=== PATIENT | male | born 1970 | race Two or more races ===

== ENCOUNTER 2024-01-16 19:42 | Emergency (ER) | payer SELFPAY ==
[2024-01-16] VITALS (8 sets, daily range): BP systolic 208–231; BP diastolic 110–130; BMI 25.1
--- NOTE | 2024-01-16 20:48 | ED.GENMED ---
History of Present Illness
General
Chief Complaint: Blood Pressure Problem
Source: patient
Time Seen by Provider: 01/16/24 20:18
History of Present Illness
History of Present Illness:
53-year-old male [facility] Patient was being brought to the [facility] after a stay at [facility]. During the intake process his blood pressure was noted to be high from the
staff at the [facility] to refer him to the emergency room. Patient has known hypertension. He was found to be hypertensive when first incarcerated, [facility] and he was started on antihypertensive medication. He did take his blood pressure medicine
this morning. He takes 20 mg of lisinopril and 25 mg of hydrochlorothiazide. Patient also was prescribed Paxil at night. His blood pressure was improving but was still elevated on measurements there. Patient denies any stimulant use.
Specifically the patient denies any headache, weakness, numbness, chest pain, shortness of breath, abdominal pain or back pain. He has no visual changes. Patient does endorse feeling very anxious about moving from 1 person to another.
Phy Exam
Physical Exam
Physical Exam:
General: Awake, Alert, Oriented X3. No acute distress.
Vitals: Hypertensive
Head: Atraumatic
Eyes: Pupils equal, EOMI
Throat: Airway intact, no exudates
Neck: Trachea midline
Lungs: Clear and equal b/l
Heart: Regular rate, no murmurs
Abd: Soft, Nontender, No pulsatile mass
Neuro: Cranial nerves intact, muscle strength equal bilaterally, cerebellar exam normal
Skin: Warm, dry, no rash
Extremities: pulses equal b/l, no edema
Course
Orders/Labs/Results
Orders:
Orders
01/16/24 20:42
Electrocardiogram (*1) Urgent
Reason for Study: Hypertension, Benign
EKG- Treatment ONCE
01/16/24 20:46
Lisinopril [Zestril] 20 mg PO NOW STA
Lorazepam [Ativan] 1 mg PO NOW STA
01/16/24 20:48
Basic Metabolic Panel Urgent
Complete Blood Count/With Diff Urgent
01/16/24 21:09
Paroxetine [Paxil] 20 mg PO NOW STA
01/16/24 23:04
HydrALAZINE [Apresoline] 10 mg PO NOW STA
Abnormal Lab Results
01/16/24
20:48
RBC 4.48 L 10^6/uL
(4.70-6.10)
Hct 36.7 L %
(39.0-52.0)
MCHC 37.9 H g/dL
(33.0-37.0)
MPV 11.1 H fL
(7.4-10.4)
Absolute Monos (auto) 0.7 H 10^3/uL
(0.1-0.6)
Monocytes % 11.0 H %
(1.7-9.3)
Carbon Dioxide 21 L mmol/L
(22-30)
BUN 30 H mg/dl
(9-20)
01/16/24 20:48
01/16/24 20:48
Vital Signs
Initial and Last Documented VS:
Initial Vital Signs
Temp Pulse Resp BP Pulse Ox
98.1 F 70 18 211/117 100
01/16/24 19:45 01/16/24 19:45 01/16/24 19:45 01/16/24 19:45 01/16/24 19:45
Last Documented Vital Signs
Temp Pulse Resp BP Pulse Ox
98.1 F 70 18 183/97 99
01/16/24 19:45 01/17/24 00:55 01/17/24 00:55 01/17/24 00:55 01/17/24 00:55
MDM/Problems Addressed
Differential Diagnosis Includes:
Hypertensive emergency, poorly controlled hypertension
MDM/Problems Addressed:
Patient has no symptoms or physical exam findings of end-organ damage. Patient has no symptoms at all actually. Patient was given an extra dose of his lisinopril as well as a dose of lorazepam as I would expect him to be anxious about
incarceration. His pressure improved but significantly. He was given a dose of hydralazine. His blood pressure improved to the 180 systolic. I do not believe there is any further treatment necessary as again he has no evidence of endorgan
unction. Patient stable for [facility] where he needs to just follow a regular regiment of antihypertensive medication
*Pulse Oximetry
Patient hypoxic: no
*Critical Care Note
Total Time (30-74mins, 75-104mins- exclusive of procedures): Not Applicable
ED Attending Note
-
Portions of this chart may have been created with voice recognition software.� Occasional wrong word or��sound alike� substitutions may have occurred due to the inherent limitations of voice recognition software.
Discharge Plan
Departure
Patient Disposition: Home (Routine Discharge)
Date of Disposition: 01/17/24
Time of Disposition: 00:57
Patient with high blood pressure during this ER visit?: Yes
Condition: Good
Discharge Problem:
Uncontrolled hypertension
Instructions: High Blood Pressure (DC)
Prescriptions:
No Action
atorvastatin 20 mg Tablet
20 mg PO HS
lisinopril [Zestril] 20 mg Tablet
20 mg PO DAILY
paroxetine HCl [Paxil] 20 mg Tablet
20 mg PO HS
Debrox 6.5 % Drops
5 drp OTIC (EAR) Q12H
hydrochlorothiazide 25 mg Tablet
25 mg PO DAILY
Referrals:
NONE,* [Family Provider] -
Activity Restrictions/Additional Instructions:
Jesse has known, poorly controlled hypertension. There is no end-organ damage and, therefore, there is no reason to admit the patient and no reason to rapidly treat his hypertension. He is currently on a relatively low dose of lisinopril and I would
suggest increasing to 40mg a day. His blood pressure is not likely to normalize rapidly but expected to take a couple weeks.
Pt is medically cleared for incarceration.
Interventions
Interventions:
*Risk Screen - Suicide Last Done: 01/16/24 20:12
*General Assessment Last Done: 01/16/24 19:45
*Neglect/Abuse Screening Last Done: 01/16/24 20:12
ED- Fall Risk Assessment Last Done: 01/16/24 20:12
*ED COVID-19 Vaccine History Last Done: 01/16/24 20:12
*Nursing Disposition Last Done: 01/17/24 01:09
ED- Cardiac Assessment Last Done: 01/16/24 20:12
ED- Neurological Assessment Last Done: 01/16/24 20:12
ED- Pulmonary Assessment Last Done: 01/16/24 20:12
Discharge Date and Time
Discharge Date/Time: 01/17/24 01:10
Print Language: MALIAN
[2024-01-16] MEDS: ZESTRIL 20 MG PO (21:11)
[2024-01-16 21:13] LABS: Blood Urea Nitrogen 30 mg/dl (9-20); Carbon Dioxide 21 mmol/L (22-30); Chloride 106 mmol/L (98-107); Estimated Creatinine Clearance 68 ml/min; Glucose 81 mg/dl (70-99); Potassium 3.5 mmol/L (3.5-5.1); Sodium 140 mmol/L (135-145); eGFR > 60.00
[2024-01-16] MEDS: ATIVAN 1 MG PO (21:14)
[2024-01-16] MEDS: PAXIL 20 MG PO (21:24)
[2024-01-16 21:27] LABS: % Basophils 0.2 % (0-2); % Eosinophils 2.1 % (0-6); % Immature Granulocytes 0.5 % (0-0.5); % Lymphocytes 20.7 % (20.5-51.1); % Neutrophils 65.5 % (42.2-75.2); Absolute Eosinophils 0.1 10^3/uL (0-0.7); Absolute Lymphocytes 1.3 10^3/uL (1.2-3.4); Absolute Monocytes 0.7 10^3/uL (0.1-0.6); Hematocrit 36.7 % (39.0-52.0); Hemoglobin 13.9 g/dL (13.0-18.0); Mean Corp Hgb Conc. 37.9 g/dL (33.0-37.0); Mean Corpuscular Volume 81.9 fL (80.0-94.0); Mean Platelet Volume 11.1 fL (7.4-10.4); Nucleated Red Blood Cells % 0 % (-); Platelet Count 202 10^3/uL (130-400); Red Blood Cell Count 4.48 10^6/uL (4.70-6.10); White Blood Cell Count 6.1 10^3/uL (4.8-10.8)
[2024-01-16] MEDS: APRESOLINE 10 MG PO (23:13)
[2024-01-17] VITALS: BP 193/112
[2024-01-17 00:55] VITALS: BP 183/97
== END 2024-01-17 01:10 | disposition home or self-care (01) ==
LOC: EMR 19:42
PROVIDERS: EMERGENCY PHYSICIAN Emergency Medicine
DX: I10 Essential (primary) hypertension (principal)
CPT/HCPCS: 99284; 80048; 85025; 93005

== ENCOUNTER 2024-12-01 18:37 | Emergency (ER) | payer SELFPAY ==
[2024-12-01] VITALS (8 sets, daily range): BP systolic 176–222; BP diastolic 100–126
[2024-12-01 19:07] LABS: Hematocrit 41.2 % (39.0-52.0); Hemoglobin 14.9 g/dL (13.0-18.0); Mean Corp Hgb Conc. 36.2 g/dL (33.0-37.0); Mean Corpuscular Volume 80.6 fL (80.0-94.0); Nucleated Red Blood Cells % 0 % (-); Platelet Count 224 10^3/uL (130-400); Red Cell Dist. Width 12.8 % (11.5-14.5)
[2024-12-01] MEDS: TRANDATE 10 MG IV (19:21)
[2024-12-01] MEDS: ZESTRIL 20 MG PO (19:21)
[2024-12-01] MEDS: ORETIC 25 MG PO (19:22)
[2024-12-01 19:23] LABS: ALT (SGPT) 18 U/L (0-50); AST (SGOT) 21 U/L (17-59); Albumin 4.6 g/dl (3.5-5.0); Alkaline Phosphatase 112 U/L (38-126); Blood Urea Nitrogen 17 mg/dl (9-20); Calcium 10.0 mg/dl (8.4-10.2); Carbon Dioxide 19 mmol/L (22-30); Chloride 111 mmol/L (98-107); Estimated Creatinine Clearance 79 ml/min; Glucose 106 mg/dl (70-99); Potassium 3.8 mmol/L (3.5-5.1); Sodium 140 mmol/L (135-145); Total Protein 7.6 g/dl (6.3-8.2); eGFR > 60.00
[2024-12-01] MEDS: APRESOLINE 10 MG IV (20:41)
[2024-12-01] MEDS: NORVASC 10 MG PO (21:38)
--- NOTE | 2024-12-01 21:44 | ED.GENMED ---
History of Present Illness
General
Chief Complaint: Blood Pressure Problem
Source: patient
Time Seen by Provider: 12/01/24 18:46
History of Present Illness
History of Present Illness:
Note:
CHIEF COMPLAINT(S)
High blood pressure.
HISTORY OF PRESENT ILLNESS
The patient is a 54-year-old male with a known history of hypertension, presenting today after being picked up for incarceration. He reports not taking his prescribed antihypertensive medications for approximately two months due to circumstances
related to being on the run from parole and subsequently running out of his medications. The patient is on Lisinopril 20 mg and Hydrochlorothiazide, but cannot recall the exact name of the latter medication. He last had his blood pressure checked in
June while incarcerated at [facility], where it was monitored and noted to be elevated. The patient is currently experiencing stress and nervousness due to his legal situation and possible incarceration for six to nine months. He denies any other
medical problems, such as diabetes or hyperlipidemia, and states he has a family history of hypertension. His blood pressure was recorded as 220/120 mmHg during today�s encounter.
PAST MEDICAL AND SURIGICAL HISTORY
The patient has a history of hypertension.
SOCIAL DETERMINANTS AFFECTING HEALTH
The patient reports being unable to regularly take his medications due to being on the run related to parole. He anticipates potential incarceration, which could impact his medical follow-up and medication access.
MEDICATIONS
- Lisinopril 20 mg, taken irregularly due to running out approximately two months ago.
- Hydrochlorothiazide, dosage unknown.
REVIEW OF SYSTEMS
- Cardiovascular: History of high blood pressure.
- Neurological: Patient reports feeling stressed and nervous.
- Psychiatric: Feeling of stress attributed to legal and incarceration circumstances.
PHYSICAL EXAM
General: Alert, no acute distress.
Cardiovascular: Blood pressure 220/120 mmHg, regular rhythm without murmur.
Respiratory: Clear lungs.
Other systems: Exam otherwise normal. No lower extremity edema. No respiratory distress. No pronator drift. No focal motor deficits. Skin normal. Pupils equal round reactive to light. Extraocular muscles intact. Cranial nerves intact
PLAN
- Conduct laboratory tests to assess current health status.
- Reinforce the importance of restarting antihypertensive medications and closely monitor blood pressure, especially during potential incarceration.
DIFFERENTIAL DIAGNOSIS
The Differential Diagnosis includes, in no particular order and is not limited to:
1. Hypertensive urgency/emergency
2. Anxiety disorder
3. Secondary hypertension (e.g., renal artery stenosis)
4. Substance withdrawal (though patient denies smoking)
5. Adrenal gland disorder (e.g., pheochromocytoma)
6. Hyperthyroidism
7. Aortic dissection
8. Coarctation of the aorta
9. Alcohol withdrawal syndrome
10. Cardiovascular disease (e.g., coronary artery disease)
EKG
My independent EKG interpretation is:
- Rhythm: Normal sinus rhythm
- Effect: Evidence of left ventricular hypertrophy (LVH)
- Abnormalities: Nonspecific ST-T wave changes
(Note: Some details like axis, specific heart rate, and exact measurement of intervals are not provided in the control officer.)
Disposition:
SUMMARY OF ENCOUNTER
The patient is a 54-year-old male with a known history of chronic hypertension who presented for uncontrolled hypertension. He was found to have high blood pressure during intake at the custodial. The patient reported not taking his blood pressure
medications for the past two months due to avoiding parole and admitted to experiencing significant stress due to his upcoming incarceration. In the emergency department, the patient was asymptomatic, and his blood pressure showed improvement
following the administration of medications. His renal function was normal. The plan is to restart his antihypertensive regimen with Lisinopril (Lisinopril) and Hydrochlorothiazide (assumed as Hydrochlorothiazide), and introduce Amlodipine for
better control. The patients condition will be monitored by the custodial medical staff, and his blood pressure will be rechecked.
DISPOSITION
Discharge.
PLAN
Restart Lisinopril and Hydrochlorothiazide. Introduce Amlodipine. The patient will be monitored by the custodial medical staff, and his blood pressure will be rechecked.
FOLLOW-UP INSTRUCTIONS
Patient to be monitored by custodial staff for blood pressure checks.
MEDICATION RECONCILIATION
- Lisinopril (restarted upon discharge)
- Hydrochlorothiazide (restarted upon discharge)
- Amlodipine (added upon discharge)
MEDICAL DECISION MAKING
Number and Complexity of Problems Addressed: Chronic conditions affecting care include hypertension. Differential diagnosis considerations include hypertensive urgency/emergency and anxiety disorder.
Data:
Category 1
- My independent interpretation of the EKG indicates normal sinus rhythm with evidence of left ventricular hypertrophy (LVH) and nonspecific ST-T wave changes.
Risk:
Care significantly affected by Social Determinants of Health: The patients ability to adhere to hypertension management has been impacted by legal issues and subsequent incarceration, affecting regular medication intake and access to medical
follow-up.
DIAGNOSIS
1. Essential (primary) hypertension (I10)
2. Anxiety related to incarceration (F41.8)
Phy Exam
Physical Exam
Physical Exam:
.
Course
Orders/Labs/Results
Orders:
Orders
12/01/24 18:46
Electrocardiogram (*1) Urgent
Reason for Study: Hypertension, Benign
EKG- Treatment ONCE
12/01/24 18:52
Complete Blood Count/With Diff Urgent
Comprehensive Metabolic Panel Urgent
12/01/24 19:09
Hydrochlorothiazide [Oretic] 25 mg PO NOW STA
Labetalol HCl [Trandate] 10 mg IV NOW STA
Lisinopril [Zestril] 20 mg PO NOW STA
12/01/24 19:46
Vital Signs- Treatment ONCE
Frequency: Once
12/01/24 20:18
HydrALAZINE [Apresoline] 10 mg IV NOW STA
12/01/24 20:52
Vital Signs- Treatment ONCE
Frequency: Once
12/01/24 21:32
Amlodipine [Norvasc] 10 mg .ROUTE .STK-MED ONE
12/02/24 08:00
Amlodipine [Norvasc] 10 mg PO DAILY
12/02/24 21:37
Amlodipine [Norvasc] 10 mg PO DAILY
Abnormal Lab Results
12/01/24
18:52
MPV 10.7 H fL
(7.4-10.4)
Absolute Lymphs (auto) 0.9 L 10^3/uL
(1.2-3.4)
Neutrophils % 78.0 H %
(42.2-75.2)
Lymphocytes % 14.6 L %
(20.5-51.1)
Chloride 111 H mmol/L
(98-107)
Carbon Dioxide 19 L mmol/L
(22-30)
Glucose 106 H mg/dl
(70-99)
12/01/24 18:52
12/01/24 18:52
Vital Signs
Initial and Last Documented VS:
Initial Vital Signs
Pulse Resp BP Pulse Ox
80 20 208/126 99
12/01/24 18:38 12/01/24 18:38 12/01/24 18:38 12/01/24 18:38
Last Documented Vital Signs
Temp Pulse Resp BP Pulse Ox
98.8 F 74 17 176/100 98
12/01/24 18:45 12/01/24 22:15 12/01/24 20:30 12/01/24 22:00 12/01/24 21:44
*Pulse Oximetry
SaO2: 98
Oxygen Mode of Delivery: Room air
Patient hypoxic: no
*Critical Care Note
Total Time (30-74mins, 75-104mins- exclusive of procedures): 30 minutes
ED Attending Note
-
Portions of this chart may have been created with voice recognition software.� Occasional wrong word or��sound alike� substitutions may have occurred due to the inherent limitations of voice recognition software.
Discharge Plan
Departure
Patient Disposition: Home (Routine Discharge)
Date of Disposition: 12/01/24
Time of Disposition: 22:19
Patient with high blood pressure during this ER visit?: Yes
Discharge Problem:
Uncontrolled hypertension
Instructions: High Blood Pressure (DC), BLOOD PRESSURE
Prescriptions:
New
lisinopril [Zestril] 20 mg tablet
20 mg PO DAILY Qty: 30 0RF
hydrochlorothiazide 25 mg tablet
25 mg PO DAILY Qty: 30 0RF
amlodipine [Norvasc] 10 mg tablet
10 mg PO DAILY Qty: 30 0RF
No Action
atorvastatin 20 mg Tablet
20 mg PO HS
lisinopril [Zestril] 20 mg Tablet
20 mg PO DAILY
paroxetine HCl [Paxil] 20 mg Tablet
20 mg PO HS
hydrochlorothiazide 25 mg Tablet
25 mg PO DAILY
Referrals:
NONE,* [Family Provider, Internal Medicine]
Activity Restrictions/Additional Instructions:
Please have your blood pressure checked twice a day until stabilized. Return immediately for chest pain, shortness of breath, weakness of any kind, headache, vomiting, vision changes or any other concerns.
Interventions
Interventions:
*Risk Screen - Suicide Last Done: 12/01/24 18:45
*General Assessment Last Done: 12/01/24 18:45
*Neglect/Abuse Screening Last Done: 12/01/24 18:46
*ED- Fall Risk Assessment Last Done: 12/01/24 20:16
*ED COVID-19 Vaccine History Last Done: 12/01/24 20:16
*Nursing Disposition Last Done: 12/01/24 22:32
ED- Cardiac Assessment Last Done: 12/01/24 20:16
ED- Neurological Assessment Last Done: 12/01/24 20:16
ED- Pulmonary Assessment Last Done: 12/01/24 20:16
Discharge Date and Time
Discharge Date/Time: 12/01/24 22:33
Print Language: MOLDOVAN
== END 2024-12-01 22:33 ==
LOC: EMR 18:37
PROVIDERS: EMERGENCY PHYSICIAN Emergency Medicine
DX: I10 Essential (primary) hypertension (principal); F41.9 Anxiety disorder, unspecified; Z79.899 Other long term (current) drug therapy; Z91.148 Patient's other noncompliance with medication regimen for other reason
CPT/HCPCS: 96374; 96375; 99284; 80053; 85025; 93005